=== PATIENT | male | born 1955 | race Caucasian/White ===

== ENCOUNTER → 2019-01-29 08:33 | Outpatient (CLI) | payer MEDICARE, MEDICAID, SELFPAY ==
[2019-01-29 10:42] LABS: Anion Gap 6 (5-15); BUN 16 mg/dL (7-18); BUN/Creat Ratio 16.6 RATIO (10-20); Chloride 108 mmol/L (98-107); Cholesterol 187 mg/dL (200); Creatinine, Serum 0.96 mg/dL (0.70-1.30); EST Glomerular Filtration Rate 83 mL/min (>60); Est Glom Filt Rate - Afr Amer 101 mL/min (>60); Glucose 95 mg/dL (74-106); High Density Lipoprotein 39 mg/dL; Potassium 4.1 mmol/L (3.5-5.1); Sodium Level 141 mmol/L (136-145); Triglycerides 105 mg/dL; Very Low Density Lipoprotein 21 mg/dL (5-40)
== END ==
PROVIDERS: Family Provider Family Medicine; PCP Family Medicine; Referring Provider Family Medicine; Visit Provider Family Medicine
DX: I10 Essential (primary) hypertension (principal)
CPT/HCPCS: 36415; 80048; 80061

== ENCOUNTER → 2019-02-23 09:48 | Outpatient (CLI) | payer MEDICARE, MEDICAID, SELFPAY ==
[2019-02-14 10:11] VITALS: BMI 37.0
[2019-02-23 12:33] LABS: Hemoglobin A1c 5.6 % (4.2-6.3)
[2019-02-23 12:35] LABS: Rheumatoid Factor < 10.0 IU/mL (<15); Thyroid Stim Hormone (TSH) 1.75 uIU/mL (0.358-3.74); Vitamin B12 378 pg/mL (211-911)
[2019-02-24 14:06] LABS: SJOGREN'S Anti-SS-A test < 0.2 AI (0.0-0.9); SJOGREN'S Anti-SS-B test < 0.2 AI (0.0-0.9)
[2019-02-25 17:21] LABS: ANTINUCLEAR ANTIBODIES DIRECT Negative (Negative)
[2019-02-26 20:07] LABS: Albumin 3.6 g/dL (2.9-4.4); Albumin, Ur 33.4 % (.); Alpha-1-Globulin, Ur 7.6 % (.); Alpha-1-Globulins 0.3 g/dL (0.0-0.4); Alpha-2-Globulins 0.7 g/dL (0.4-1.0); Alpha-2-Globulins, Ur 17.8 % (.); Beta Globulin, Ur 23.7 % (.); Cytoplasmic Ab (C-ANCA) <1:20 titer (Neg:<1:20); Gamma Globulin 1.1 g/dL (0.4-1.8); Gamma Globulin, Ur 17.4 % (.); Immunoglobulin A 81 mg/dL (61-437); Immunoglobulin G 847 mg/dL (700-1600); Immunoglobulin M 77 mg/dL (20-172); M-Spike, Ur % Not Observed % (Not Observed); PROEL- TOTAL PROTEIN 6.6 g/dL (6.0-8.5); Total Protein, Ur 13.8 mg/dL (Not Estab.)
[2019-02-27 17:47] LABS: Perinuclear Ab (P-ANCA) <1:20 titer (Neg:<1:20)
== END ==
PROVIDERS: Family Provider Family Medicine; PCP Family Medicine; Referring Provider Family Medicine; Visit Provider Psychiatry & Neurology Neurology
DX: G62.9 Polyneuropathy, unspecified (principal); I10 Essential (primary) hypertension; Z79.899 Other long term (current) drug therapy
CPT/HCPCS: 36415; 82607; 82784; 83036; 84165; 84166; 84443; 86038; 86235; 86256; 86334; 86335; 86431

== ENCOUNTER → 2019-02-28 | Outpatient (CLI) | payer MEDICARE, MEDICAID, SELFPAY ==
[2019-02-14 10:11] VITALS: BMI 37.0
--- NOTE | 2019-02-28 07:19 | MRI_ITS ---
STUDY: MRI BRAIN WITHOUT CONTRAST REASON FOR EXAM: Male, 63 years old. aneurysm follow up, no new complaints, no prior surgery, prev SDH,cva 2017. TECHNIQUE: Standardized multiplanar fat and water weighted pulse sequences were obtained. COMPARISON: CT dated February 28, 2019 and November 01, 2017 FINDINGS: Again noted is a right parietotemporal encephalomalacia and gliosis, the site of previous hemorrhage. There is mild cerebral atrophy with widening of the extra-axial spaces and ventricular dilatation. There are a limited number of small white matter hyperintensities, distributed throughout the deep white matter tracts of the cerebral hemispheres, consistent with mild chronic white matter ischemic changes. Normal bilateral basal ganglia. Normal thalami. There is no extra-axial fluid accumulation. Normal flow voids within the major intracranial circulation suggesting patency by spin echo criteria. Normal sella turcica, pituitary gland, infundibular stalk, optic chiasm and hypothalamus. Normal tectal plate and pineal gland. Normal midbrain, sandra and medulla. Normal cerebellum. MRI/Brain without Contrast IMPRESSION: No acute intracranial abnormality. Right parietotemporal encephalomalacia and gliosis Electronically Signed: Dario Munoz MD at 9:03 EDT Tel , Service support ,
--- NOTE | 2019-02-28 08:16 | CT_ITS ---
STUDY: CTA NECK WITH CONTRAST REASON FOR EXAM: Male, 63 years old. Peripheral vision loss. Left-sided weakness. History of CVA 2017. RADIATION DOSAGE (If Supplied By Facility): CTDIvol = ( 35.80 ) mGy, DLP = ( 1833.49 ) mGycm TECHNIQUE: CT angiography with multi-detector data acquisition was performed from the aortic arch to the skull base following intravenous administration of 100 IV Isovue 370. MIP images were reconstructed from the axial data set. Post-processing of the angiographic images was performed, with multiplanar reformation and 3D reconstruction. Individualized dose optimization techniques were used for this CT. COMPARISON: CT head February 28, 2019. FINDINGS: AORTIC ARCH: Normal visualized aortic arch. Normal origins of the brachiocephalic, left common carotid, and left subclavian arteries. RIGHT CAROTID ARTERIES: Normal right common carotid artery (CCA). Normal right common carotid bulb. Normal origin of the right internal carotid (ICA) artery without a hemodynamically significant stenosis. Normal visualized cervical portion of the right internal carotid artery. Normal origin of the right external carotid artery (ECA). LEFT CAROTID ARTERIES: Normal left common carotid artery (CCA). Normal left common carotid bulb. Normal origin of the left internal carotid (ICA) artery without a hemodynamically significant stenosis. Normal visualized cervical portion of the left internal carotid artery. Normal origin of the left external carotid artery (ECA). VERTEBRAL ARTERIES: Normal bilateral vertebral arteries. Multilevel degenerative changes of the mid and lower cervical spine. CT/CTA Neck W/WO Contrast IMPRESSION: Normal bilateral cervical carotid and vertebral arteries. Electronically Signed: Mendez Tee MD at 4:13 EDT , Service support ,
--- NOTE | 2019-02-28 08:16 | CT_ITS ---
STUDY: CT BRAIN WITH AND WITHOUT CONTRAST REASON FOR EXAM: Male, 63 years old. Peripheral vision loss. Left-sided weakness. Subdural hematoma. CVA 2017. RADIATION DOSAGE (If Supplied By Facility): CTDIvol = ( 35.80 ) mGy, DLP = ( 1833.49 ) mGycm TECHNIQUE: Transaxial CT imaging of the brain was performed pre and post contrast administration. The examination was performed with intravenous administration of 100 IV Isovue 370. Individualized dose optimization techniques were used for this CT. COMPARISON: None. FINDINGS: Normal soft tissue structures. Normal calvarium. Normal size ventricles and extra-axial spaces for the patient's age. Normal white matter tracts of the cerebral hemispheres. Normal basal ganglia and thalami. Normal brainstem. Normal cerebellum. Old right posterior parietal occipital region infarction. No abnormal areas of contrast enhancement There is no intracranial hemorrhage. There are no findings of an acute ischemic infarction. Normal visualized paranasal sinuses. CT/CTA Head W/WO Contrast IMPRESSION: No acute intracranial abnormality. Old right parieto-occipital infarction. Electronically Signed: Mendez Tee MD at 3:58 EDT , Service support ,
== END | disposition home or self-care (01) ==
PROVIDERS: Family Provider Family Medicine; PCP Family Medicine; Referring Provider Psychiatry & Neurology Neurology; Visit Provider Psychiatry & Neurology Neurology
DX: I72.9 Aneurysm of unspecified site (principal); I60.9 Nontraumatic subarachnoid hemorrhage, unspecified
CPT/HCPCS: 70496; 70498; 70551; Q9967

== ENCOUNTER → 2019-03-19 05:57 | Outpatient (CLI) | payer MEDICARE, MEDICAID, SELFPAY ==
[2019-02-14 10:11] VITALS: BMI 37.0
--- NOTE | 2019-03-19 06:00 | ECHOCS_ITS ---
Reason For Study: CHEST PAIN Procedure This was a 2D Doppler, Color Flow transthoracic echocardiogram. The study was technically difficult. Due to body habitus. Exam performed in department. Left Ventricle Normal LV size. Mild concentric left ventricular hypertrophy. Left ventricular systolic function is normal. The estimated ejection fraction is 65 %. No regional wall motion abnormalities noted. Right Ventricle Normal RV size. Normal systolic function. Atria Normal left atrium. Normal right atrium. Mitral Valve Normal mitral valve. Tricuspid Valve Normal tricuspid valve. Mild tricuspid valve insufficiency. Pulmonary artery systolic pressure is 26 mmHg. Aortic Valve The aortic valve is not well visualized. Pulmonic Valve Normal pulmonic valve. Great Vessels Normal aortic root. The pulmonary artery is normal size. Normal inferior vena cava. Pericardium/Pleural No pericardial effusion. Medication Diluted definity 4.0ml given slow IV push to enhance endocardial definition. Performed a rapid injection of agitated mix of 9 cc saline and 1cc air to assess for atrial septal defect. MMode/2D Measurements & Calculations LVIDd: 4.7 cm IVSd: 1.2 cm Ao root diam: 2.9 cm LVIDs: 3.3 cm LVPWd: 1.2 cm RVDd: 3.1 cm FS: 29.6 % LAV(MOD-bp): 54.6 ml LA A4 area: 18.5 cm2 LA dimension(2D): 4.3 cm LAV(MOD-bp) Indexed: 23.4 ml/m2 LAV(MOD-sp2): 50.9 ml LAV(MOD-sp4): 54.7 ml Time Measurements MV dec time: 0.21 sec Doppler Measurements & Calculations MV E max evgeny: 61.8 cm/sec Lat Peak E' Evgeny: 8.9 cm/sec Med Peak E' Evgeny: 5.9 cm/sec MV A max evgeny: 74.9 cm/sec E/E' lat: 6.9 E/E' med: 10.6 MV E/A: 0.83 Ao V2 max: 117.2 cm/sec LV V1 max: 105.3 cm/sec PA V2 max: 126.1 cm/sec Ao max P.5 mmHg LV V1 max P.4 mmHg TR max evgeny: 237.7 cm/sec TR max P.6 mmHg Interpretation Summary Normal LV size. Mild concentric left ventricular hypertrophy. Left ventricular systolic function is normal. The estimated ejection fraction is 65 %. Mild tricuspid valve insufficiency. Contrast injection was performed. Ordering Physician: Raphael Gallardo Referring Physician: Florentino Garza Performed By: Geneva Villalpando, CORINA, RVT
--- NOTE | 2019-03-19 09:16 | STRESSREP ---
Stress Test Report Pharmacologic myocardial perfusion stress test. 63-year-old man with a history of chest pain. Medications: Losartan. Resting EKG demonstrates normal sinus rhythm with a rate of 80 bpm. Resting blood pressures 152/84 mmHg. 0.4 mg of regadenoson was infused per usual protocol followed by rapid intravenous saline flush injection continuous EKG monitoring was performed. The maximum heart rate was 103 bpm which was 66% of maximum predicted heart rate the maximum workload was 1 metabolic equivalent. At rest there were no ST or T wave changes noted suggest abnormal flow reserve at peak infusion nonspecific ST-T wave changes were noted. No clinical angina was noted Myocardial perfusion protocol. 14.4 mCi of technetium 99m sestamibi was injected at rest. 0.4 mg of regadenoson was infused per usual protocol peak infusion 44.7 mCi of technetium 99m sestamibi was injected stress images were obtained stress and rest images were reconstructed and compared in the short axis vertical long horizontal long axis. Gated images were also obtained per Perfusion SPECT analysis: Review of the stress images demonstrate normal uptake of tracer noted in all areas of the myocardium. The resting images similarly demonstrate normal uptake of tracer noted in all areas of myocardium. No areas of reversibility are noted suggest ischemia no previous infarct is noted. Gated SPECT analysis: The gated ejection fraction is noted to be 68%. Conclusion: Normal pharmacologic myocardial perfusion stress test. Preserved ejection fraction.
== END ==
PROVIDERS: Family Provider Family Medicine; PCP Family Medicine; Referring Provider Internal Medicine Cardiovascular Disease; Visit Provider Internal Medicine Cardiovascular Disease
DX: I10 Essential (primary) hypertension (principal); R07.9 Chest pain, unspecified
CPT/HCPCS: 78452; 93017; 93306; A9500; Q9957; A4216; C8929; J2785

== ENCOUNTER → 2019-04-18 06:01 | Outpatient (CLI) | payer MEDICARE, MEDICAID, SELFPAY ==
[2019-02-14 10:11] VITALS: BMI 37.0
--- NOTE | 2019-04-18 14:04 | NEURO ---
NCS and/or EMG Patient Report Ordering Doctor: Antonio Rey DATE OF SERVICE: 04/18/19 Bryan Lopez is a 63-year-old male presents for electrodiagnostic testing of the lower limbs. He reports numbness and tingling in both feet and legs. He does have a history of CVA in 2017, and reports that his symptoms began after that. Electrodiagnostic findings: Peroneal motor nerve demonstrates normal distal latency bilaterally with borderline reduced amplitude on the right and reduced amplitude on the left, with normal conduction velocity. Normal tibial motor response bilaterally sensory responses are within normal limits. Needle EMG testing reveals no evidence of denervation in muscles tested. Motor action potentials were normal amplitude and duration. Electrodiagnostic Impression: This is an abnormal study in the lower limbs. 1. 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 Borderline findings for right common peroneal neuropathy are noted. There is no evidence of conduction block at the fibular head. 2. There is no electrodiagnostic evidence for peripheral polyneuropathy. 3. No electrodiagnostic evidence is noted for lumbosacral radiculopathy. If there are any further questions, please do not hesitate to contact me.
== END ==
PROVIDERS: Family Provider Family Medicine; PCP Family Medicine; Referring Provider Psychiatry & Neurology Neurology; Visit Provider Psychiatry & Neurology Neurology
DX: R26.89 Other abnormalities of gait and mobility (principal)
CPT/HCPCS: 95886; 95912

== ENCOUNTER → 2019-04-24 06:50 | Outpatient (CLI) | payer MEDICARE, MEDICAID, SELFPAY ==
[2019-02-14 10:11] VITALS: BMI 37.0
--- NOTE | 2019-04-24 09:50 | NEURO ---
NCS and/or EMG Patient Report Ordering Doctor: Antonio Rey DATE OF SERVICE: 04/24/19 This is a bilateral upper extremity nerve conduction study performed on this 63-year-old male with a history of left arm weakness and stroke. Bilateral upper extremity sensory and motor nerve conduction studies performed. The median motor and sensory distal latencies are mild to moderately prolonged with preservation of amplitudes and conduction velocities. The ulnar motor and sensory responses are preserved. The median F wave latencies are mild to moderately prolonged. The left ulnar F-wave latency is mildly prolonged however this is of unclear clinical significance. The patient had a nerve conduction study performed of the bilateral lower extremities recently which was consistent with common peroneal neuropathy but no evidence of polyneuropathy or radiculopathy. Impression: This is an abnormal elective physiologic study of the bilateral upper extremities consistent with carpal tunnel syndrome bilaterally.
== END ==
PROVIDERS: Family Provider Family Medicine; PCP Family Medicine; Referring Provider Psychiatry & Neurology Neurology; Visit Provider Psychiatry & Neurology Neurology
DX: R26.89 Other abnormalities of gait and mobility (principal)
CPT/HCPCS: 95911

== ENCOUNTER 2019-05-16 08:30 | Outpatient (RCR) | payer MEDICARE, MEDICAID, SELFPAY ==
[2019-02-14 10:11] VITALS: BMI 37.0
--- NOTE | 2019-03-09 08:46 | HP.PTEVAL ---
Patient's Visit Information LISA TIDWELL is a 63 year old M referred to Physical Therapy by Antonio Rey MD with a diagnosis of Balance issues. Date of Evaluation: 03/09/19 Physical Therapist: Timmy Dalton DPT, OCS, CSCS - Visit Plan Frequency: 2-3x /Week Duration: 4-6 Weeks Plan: neurocom blanace test then 2-3x/week for 4 weeks for: balance and general postural/LE strength to HEP. - Subjective Findings: Mom with him today. Had a hemmorhagic stroke in 2017 10/01/19. Saw [facility] a few weeks ago aas he has trouble with balance since the stroke. No dizzyness. Lost amost all peripheral vision from the stroke. Walking on flat ground is OK, yards adn uneven really throws him off. Has to take an extra minute when he gets up. No falls. No cane or walker. Has numbness in legs not sure why but has clots in legs and IVC filter that has been blocked. Not employed can't drive. Sleeps OK, bood vessels in legs and abdomen from circulation can cause discomfort much of time. Nothing to do about it at this time but have nerve conduction test is scheduled in March. Stress test scheduled for heart. MRI CT scan of head, EKG wiol be done. No regular exercises. Spends time not doign much, cleans a little bit. Walks alot each day 30-50 minutes + 2x/day. Tired upon completion. Walks on concrete. Steps to basement and can do them with rail. No previous balance treatment. Limps when tired. Basic ADLS no problem but does bump into things due to blindness - Objective Pt transfers I but difficult without UE. Walks with wide SHYAM and arms out carefully, short L step length, much more confident with cane. steps uses R Only and requires rail, poor confidence with L and functionally weaker. HS and gastroc mod tight. B LE swollen and edematous as ecpected with clots , filter adn inability to take blood thinner. Poor vision is apparent as he is walking. LE aROM WFL. Strength 4/5 B without asymmetries. sensation diminished R distal LE. reflexes 1/3 B patella and achilles. UE AROM WFL btu slow and hesitant, strength symmetrical. Poor coordination and motor control B LE especially in standing as confidence with vision problem and diminished sensation is poor. - Balance Scores Functional Gait Assessment Score: 16 % Disability: 46.6700 CATSIB Score (Max score 120 seconds): 93 - Goals Goal 1:: Pt to walk regularly with AD(B walking sticks for fitness and stick or cane for function) withotu increased symptoms adn show less hesitancy with balance. Goal Time Frame: 4-6 Weeks Goal 2:: FGA to diminish fall risk Goal Time Frame: 4-6 Weeks Goal 3:: Pt feel balance 75% better. Goal Time Frame: 4-6 Weeks Goal 4:: I approp HEP for strength and balance to minimize problems in future. Goal Time Frame: 4-6 Weeks - Rehabilitation Potential Physical Therapy Diagnosis: Balance issues related to multiple medical problems. Rehabilitation Potential: Fair - Anticipated Interventions Patient/Client Instruction: Educate patient on: Condition, Plan of Care, Risk Factors For the Purpose of:: To improve gait and locomotor functions, To improve balance Therapeutic Exercise to Include: Strength training, Balance training, Postural training, Flexibilty training For the Purpose of:: To increase tolerance to activity/condition/position, To improve gait and locomotor functions, To improve safety with gait Thank you for the opportunity to evaluate your patient. For Medicare and Medicare HMO plans, please review the plan of care and approve it. It will need to be FAXED BACK to us at [phone] for Medicare purposes. For Medicare only, by signing this I certify the plan of care. Please let me know if there are questions or concerns regarding this plan of care. Physician Signature: Date:
--- NOTE | 2019-03-20 10:32 | HP.PTCOM ---
PT Communication Note 03/20/[address] Antonio Rey MD , Thank you for the referral of Bryan to [facility] for balance testing. I have enclosed a copy of the results for your review. In summation, he scored lower on the visual and vestibular portion of the SOT. He scored slow on the Motor Control Test. He scored slow on the Adaptation Test but adapted fairly well. He scored low on the excursiona nd velocity forward weight shifts on the Limits of Stability Test. With these results in mind, I plan to see him 3x/week for 4 weeks to wrok on LE strength, postural strength adn balance per these results and progress to an HEP. If there are questions regarding his PT, please feel free to call me. Thank you once again. Sincerely, Timmy Dalton DPT, OCS, CSCS Contact Information
--- NOTE | 2019-03-20 10:36 | HP.PTCOM_ITS ---
PT Communication Note 03/20/[address] Antonio Rey MD , Thank you for the referral of Bryan to [facility] for balance testing. I have enclosed a copy of the results for your review. In summation, he scored lower on the visual and vestibular portion of the SOT. He scored slow on the Motor Control Test. He scored slow on the Adaptation Test but adapted fairly well. He scored low on the excursiona nd velocity forward weight shifts on the Limits of Stability Test. With these results in mind, I plan to see him 3x/week for 4 weeks to wrok on LE strength, postural strength adn balance per these results and progress to an HEP. If there are questions regarding his PT, please feel free to call me. Thank you once again. Sincerely, Timmy Dalton DPT, OCS, CSCS Contact Information
--- NOTE | 2019-04-20 10:55 | HP.PTREVAL_ITS ---
Antonio Rey MD, It has been my pleasure to treat LISA TIDWELL over the last 13 visits for Balance issues. Please see the progress note below for an update on the physical therapy plan of care! Subjective: Feeling stronger. Balancemay have some improvement. Walking and moving at home can feel unsteady but no LOB or falls. Tired after therapy. Head movement balance is better. Go a cane but not using it. Mom says walking better outside. HEP stadning at counter, SLS, squats. VOR sitting. using steps to basement as ex. Objective/Function: FGA is +8 which is excellent, plenty of strength to push self up steps without UE help. 4+/5 LE strength. OVERALL MUCH BETTER, CAN BENEFIT FROM COTNINUED PT TO WORK ON BALANCE WITH HEAD MOVEMENTS WITH FAIR PROGNOSIS. Plan Plan: 2X/WEEK X 4 WEEKS FOR ... 1. Teach for HEP with list deeper squats, lunges, RDL, and TB posture ex. 2. Balance with head movements VOR, and bending to look at floor and quick turns. Progress to HEP as safety allows. Goals Goal 1:: Pt to walk regularly with AD(B walking sticks for fitness and stick or cane for function) withotu increased symptoms adn show less hesitancy with balance. Goal Time Frame: 4-6 Weeks Goal Progress: Goal Met Goal 2:: FGA to diminish fall risk Goal Time Frame: 4-6 Weeks Goal Progress: Goal Met Goal 3:: Pt feel balance 75% better. Goal Time Frame: 4-6 Weeks Goal Progress: 25% Goal 4:: I approp HEP for strength and balance to minimize problems in future. Goal Time Frame: 4-6 Weeks Goal Progress: Progressing. Goal 5:: FGA to reduce risk of falling. Goal Time Frame: 4-6 Weeks Goal Progress: NEW GOAL Anticipated Interventions Patient/Client Instruction: Educate patient on: Condition, Plan of Care, Risk Factors For the Purpose of:: To improve gait and locomotor functions, To improve balance Therapeutic Exercise to Include: Strength training, Balance training, Postural training, Flexibilty training For the Purpose of:: To increase tolerance to activity/condition/position, To improve gait and locomotor functions, To improve safety with gait Please do not hesitate to contact me at [phone] by phone or Fax: if you have questions or concerns regarding this new plan of care! Sincerely, Timmy Dalton, DPT, OCS, CSCS
--- NOTE | 2019-05-16 08:50 | HP.PTDCSUM ---
HP - PT D/C Summary It has been my pleasure to treat LISA TIDWELL under orders from Antonio Rey MD, for the diagnosis of Balance issues for a total of 21 visit(s). Discharge Date: 05/16/19 Please see the following information for a summary of their discharge status. - Subjective Subjective: Strength balance adn confidence. Doing exercises at home regularly. Safer and more confident shopping. Tolerates changes in grade of donita without problem now. Will walk more confidently on sidewalks now. Confident enough to fly to [employer] in a few weeks. - Overall Improvement % Improvement: 75 - Objective Objective/Function: FGA is and +14 overall which is amazing improvement. His confience has improved tremendously. Transfers and steps without need for UE today. - Goals Goal 1:: Pt to walk regularly with AD(B walking sticks for fitness and stick or cane for function) withotu increased symptoms adn show less hesitancy with balance. Goal Progress: not needed now. Goal 2:: FGA to diminish fall risk Goal Progress: Goal Met Goal 3:: Pt feel balance 75% better. Goal Progress: Goal Met Goal 4:: I approp HEP for strength and balance to minimize problems in future. Goal Progress: Goal Met Goal 5:: FGA to reduce risk of falling. Goal Progress: Goal Met - Plan Plan: D/C - D/C Information Discharge Comments: Amazing improvement in balance and confidence adn will continue via HEP. If there are questions or concerns regarding this patient's physical therapy, please feel free to call me at [phone]. Thank you for the referral of this patient. Sincerely, Timmy Dalton, DPT, OCS, CSCS
== END 2019-05-16 19:00 | disposition home or self-care (01) ==
LOC: PT 08:30
PROVIDERS: Family Provider Family Medicine; PCP Family Medicine; Referring Provider Psychiatry & Neurology Neurology; Visit Provider Psychiatry & Neurology Neurology
DX: R26.89 Other abnormalities of gait and mobility (principal)
CPT/HCPCS: 97110; 97116; 97162; 97530; 97750

== ENCOUNTER → 2019-08-20 09:02 | Outpatient (CLI) | payer MEDICARE, MEDICAID, SELFPAY ==
[2019-08-16 08:24] VITALS: BMI 35.8
[2019-08-20 10:33] LABS: Anion Gap 7 (5-15); BUN 16 mg/dL (7-18); BUN/Creat Ratio 15.8 RATIO (10-20); Calcium,Total 9.5 mg/dL (8.5-10.1); Chloride 107 mmol/L (98-107); Cholesterol 177 mg/dL (200); Creatinine, Serum 1.01 mg/dL (0.70-1.30); EST Glomerular Filtration Rate 79 mL/min (>60); Est Glom Filt Rate - Afr Amer 95 mL/min (>60); Glucose 95 mg/dL (74-106); High Density Lipoprotein 37 mg/dL; Potassium 4.8 mmol/L (3.5-5.1); Sodium Level 143 mmol/L (136-145); Triglycerides 154 mg/dL; Very Low Density Lipoprotein 31 mg/dL (5-40)
== END ==
PROVIDERS: Family Provider Family Medicine; PCP Family Medicine; Referring Provider Family Medicine; Visit Provider Family Medicine
DX: I10 Essential (primary) hypertension (principal)
CPT/HCPCS: 36415; 80048; 80061

== ENCOUNTER → 2020-02-22 16:51 | Outpatient (CLI) | payer MEDICARE, MEDICAID, SELFPAY ==
[2019-08-16 08:24] VITALS: BMI 35.8
--- NOTE | 2020-02-22 16:56 | MRI_ITS ---
STUDY: MRI BRAIN WITHOUT CONTRAST REASON FOR EXAM: Male, 64 years old. New onset of seizures, 2017 HX of ruptured Aneurysm, SAH TECHNIQUE: Standardized multiplanar fat and water weighted pulse sequences were obtained. COMPARISON: MRI of the brain February 28, 2019 FINDINGS: Normal size of the ventricles and extra-axial spaces for the patient''s age. Mild periventricular white matter ischemic changes without evidence for mass effect or restricted diffusion.. There is gliosis and encephalomalacia in the right temporal parietal region with porencephalic dilatation of the occipital horn of right lateral ventricle in association with hemosiderin deposition consistent with old hemorrhagic infarct. Normal bilateral basal ganglia. Normal thalami. There is no extra-axial fluid accumulation. Normal flow voids within the major intracranial circulation suggesting patency by spin echo criteria. Normal sella turcica, pituitary gland, infundibular stalk, optic chiasm and hypothalamus. Normal tectal plate and pineal gland. Normal midbrain, sandra and medulla. Normal cerebellum. Normal basal cisterns. Normal bilateral temporal bones. Normal bilateral internal auditory canals. Postsurgical changes of the orbits.. Minor mucosal thickening of the ethmoid air cells Normal calvarium and skull base. Normal visualized soft tissue structures. Normal visualized upper cervical spine. No significant change since prior exam MRI/Brain without Contrast IMPRESSION: Findings which may be consistent with old right hemorrhagic temporal parietal infarct. Mild periventricular white matter ischemic change without evidence for acute infarct Electronically Signed: Elliott Farias MD at 18:20 EDT , Service support ,
== END ==
PROVIDERS: PCP Family Medicine; Visit Provider Nurse Practitioner Family
DX: R55 Syncope and collapse (principal); Z86.79 Personal history of other diseases of the circulatory system
CPT/HCPCS: 70551

== ENCOUNTER → 2020-03-11 20:29 | Outpatient (CLI) | payer MEDICARE, MEDICAID, SELFPAY ==
[2019-08-16 08:24] VITALS: BMI 35.8
== END ==
PROVIDERS: PCP Family Medicine; Visit Provider Nurse Practitioner Family
DX: G47.33 Obstructive sleep apnea (adult) (pediatric) (principal)
CPT/HCPCS: 95810

== ENCOUNTER → 2020-03-28 11:48 | Outpatient (CLI) | payer MEDICARE, MEDICAID, SELFPAY ==
[2020-03-27 10:16] VITALS: BMI 36.1
[2020-03-28 15:43] LABS: Anion Gap 3 (5-15); BUN 12 mg/dL (7-18); BUN/Creat Ratio 13.7 RATIO (10-20); Calcium,Total 9.1 mg/dL (8.5-10.1); Chloride 105 mmol/L (98-107); Cholesterol 150 mg/dL (200); Creatinine, Serum 0.87 mg/dL (0.70-1.30); EST Glomerular Filtration Rate 93 mL/min (>60); Est Glom Filt Rate - Afr Amer 112 mL/min (>60); Glucose 102 mg/dL (74-106); High Density Lipoprotein 28 mg/dL; Sodium Level 139 mmol/L (136-145); Triglycerides 227 mg/dL; Very Low Density Lipoprotein 45 mg/dL (5-40)
== END ==
PROVIDERS: PCP Family Medicine; Visit Provider Family Medicine
DX: I10 Essential (primary) hypertension (principal)
CPT/HCPCS: 36415; 80048; 80061

== ENCOUNTER → 2020-04-02 | Outpatient (CLI) | payer MEDICARE, MEDICAID, SELFPAY ==
[2020-03-27 10:16] VITALS: BMI 36.1
== END | disposition home or self-care (01) ==
LOC: LABSPEC 14:20
PROVIDERS: PCP Family Medicine; Referring Provider Family Medicine; Visit Provider Family Medicine
DX: D49.2 Neoplasm of unspecified behavior of bone, soft tissue, and skin (principal)

== ENCOUNTER → 2020-04-03 | Outpatient (CLI) | payer MEDICARE, MEDICAID, SELFPAY ==
[2020-03-27 10:16] VITALS: BMI 36.1
--- NOTE | 2020-04-02 | LES_PTH ---
PATIENT: LISA TIDWELL LOC: [facility] U#:[id number] AGE/SX: 64/M ROOM: RE04/03/[address]: Dr. Florentino Garza MD : [id number] BED: DIS: 04/03/2020 SPEC #: [id number] RECD: 04/02/20 12:17 STATUS: ANGELINA TILA #: [id number] TOBI: 04/02/20 00:[address]: Florentino Garza DEPT: SURGICAL PATHOLOGY RECD BY: Alverto Suarez Tissues: Skin of arm Procedures: Surgery Specimen Level IV HEADER OPERATION: Punch biopsy PRE-OP DIAGNOSIS: Suspicious skin lesion right forearm TISSUE SUBMITTED: Right forearm 8 mm MICROSCOPIC DIAGNOSIS Skin lesion of right forearm, punch biopsy: Verrucoid keratosis. Mild solar elastosis. See comment. AM:ozzie 04/03/20 COMMENT The lesion appears to have been completely excised in the planes examined. MICROSCOPIC DESCRIPTION Slides are reviewed. GROSS DESCRIPTION Received is one container labeled with the patient's name and not further designated. The specimen consists of a punch biopsy of nicole-white skin measuring 0.8 cm in diameter and 0.2 cm in length. The specimen is inked and submitted entirely in one cassette. It will be bisected at the time of embedding. / SJ:rg 04/02/20 TC:5 [facility] [place]: [id number]
== END | disposition home or self-care (01) ==
PROVIDERS: PCP Family Medicine; Visit Provider Family Medicine
DX: L57.8 Other skin changes due to chronic exposure to nonionizing radiation (principal)
CPT/HCPCS: 88305

== ENCOUNTER → 2020-04-14 20:00 | Outpatient (CLI) | payer MEDICARE, MEDICAID, SELFPAY ==
[2020-03-27 10:16] VITALS: BMI 36.1
== END ==
PROVIDERS: PCP Family Medicine; Referring Provider Nurse Practitioner Family; Visit Provider Nurse Practitioner Family
DX: G47.33 Obstructive sleep apnea (adult) (pediatric) (principal)
CPT/HCPCS: 95811

== ENCOUNTER 2020-05-10 19:03 | Emergency (ER) | payer MEDICARE, MEDICAID, SELFPAY ==
[2020-03-27 10:16] VITALS: BMI 36.1
[2020-05-10 19:05] VITALS: BP 128/72; PULSE 64; RESP 12; TEMP 36.5; O2SAT 99; BMI 36.0
--- NOTE | 2020-05-10 19:23 | EKG12_ITS ---
Test Reason : SYNCOPE Blood Pressure : / mmHG Vent. Rate : 069 BPM Atrial Rate : 069 BPM P-R Int : 178 ms QRS Dur : 090 ms QT Int : 392 ms P-R-T Axes : 041 -40 007 degrees QTc Int : 420 ms Normal sinus rhythm Left axis deviation Abnormal ECG Confirmed by WILLIAMS MARVIN, SEMAJ ([id number]), digital forensic examiner TALAT CARNES ([id number]) on 05/12/2020 1:12:09 PM Referred By: ARMANDO Confirmed By:SEMAJ KRAMER MD
--- NOTE | 2020-05-10 19:23 | CT_ITS ---
STUDY: CT BRAIN WITHOUT CONTRAST REASON FOR EXAM: Male, 64 years old. SYNCOPE, TRAUMA, LAC TO FOREHEAD. H/O HEMORRHAGIC CVA RADIATION DOSAGE (If Supplied By Facility): CTDIvol = ( 44.99 ) mGy, DLP = ( 779.21 ) mGycm TECHNIQUE: Transaxial CT imaging of the brain was performed without administration of intravenous contrast material. Individualized dose optimization techniques were used for this CT. COMPARISON: No relevant priors. FINDINGS: Normal soft tissue structures. Normal calvarium. Normal size ventricles and extra-axial spaces for the patient''s age. Mild periventricular white matter ischemic changes. Old infarct in the right parieto-occipital region.. Normal basal ganglia and thalami. Normal brainstem. Normal cerebellum. There is no intracranial hemorrhage. There are no findings of an acute ischemic infarction. Postsurgical changes of the orbits. Normal visualized paranasal sinuses. CT/Brain/Head without Contrast IMPRESSION: Old right parieto-occipital infarct. No evidence for acute intracranial bleed Electronically Signed: Elliott Farias MD at 20:39 EDT , Service support ,
--- NOTE | 2020-05-10 19:24 | RAD_ITS ---
STUDY: X-RAY CHEST REASON FOR EXAM: Male, 64 years old. Syncope, shakiness. TECHNIQUE: PA and lateral COMPARISON: None. FINDINGS: The lungs are clear and expanded. There is no demonstrated pleural abnormality. Normal size heart. Normal mediastinum and frank. Normal visualized pulmonary arteries. Normal visualized aortic arch and descending thoracic aorta. Dorsal spine demonstrates mild degenerative change. Normal visualized ribs, clavicles, and shoulders. There is no demonstrated abnormality of the visualized soft tissue structures of the upper abdomen. RAD/Chest PA and Lateral IMPRESSION: No acute cardiopulmonary pathology. Electronically Signed: Elliott Farias MD at 20:09 EDT , Service support ,
--- NOTE | 2020-05-10 19:30 | ED.DCSUM_ITS ---
History of Present Illness Chief Complaint: Syncope Informant: Patient Narrative: Patient is a 64-year-old male who presents to the emergency department after a syncopal episode. He states that it initially started as lower quadrant abdominal cramping. He went to have a bowel movement. This did relieve his symptoms. He went to stand up and he got the abdominal discomfort again. At that time he had a syncopal episode. He states he was not straining to have a bowel movement at that time. He fell and hit his head. He has a small laceration to his forehead. He denies having any chest pain, shortness of breath or heart palpitations during any of this. He has had syncopal episodes before in the past. He states he does have a history of strokes for which she has some residual problems from. He has no peripheral vision. He gets vertigo at times. 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 He has an IVC filter in place but is not on any anticoagulation. He denies any recent illnesses including any cough, cold, congestion. No fevers or chills. Denies any nausea or vomiting. His abdominal pain has completely resolved at this time. He does not have any complaints now. He has had a recent medication change with a decrease in his dose of hydrochlorothiazide. Past Medical History - Allergies and Home Meds Allergies/Adverse Reactions: Allergies No Known Allergies Allergy (Verified 03/27/20 10:17) Primary Care Physician: Florentino Garza MD [Primary Care Provider] - Prior records reviewed: Yes Past Medical History: - - DVT, stroke, hypertension Surgical History: - - IVC filter placed Lives: Spouse/ Significant Other Smoking Status: Never smoker Review of Systems All systems negative except as indicated General: Denies: Chills, Fever, Sweats Eyes: Denies: Visual changes - bilaterally, Diplopia ENT: Denies: Rhinorrhea, Sore throat Cardiovascular: Denies: Chest pain, Palpitations Respiratory: Denies: Dyspnea, Cough, Dyspnea on exertion Gastrointestinal: Reports: Abdominal pain - Resolved. Denies: Nausea, Vomiting, Diarrhea, Melena, Hematochezia Genitourinary: Denies: Dysuria, Hematuria, Frequency Musculoskeletal: Reports: Neck pain - Right paraspinal musculature into t rapezius. Denies: Back pain, Extremity Pain Skin: Denies: Rash, Wounds Neurological: Denies: Headache, Weakness, Numbness Physical Exam Vital Signs/Narrative: Vital Signs Temp Pulse Resp BP Pulse Ox 05/10/20 19:05 97.7 F L 64 12 128/72 H 99 Inital Vital Signs reviewed: Yes General: Well nourished, Well developed, No Acute Distress Head: Normocephalic, - - 3 cm laceration over left eyebrow. No active bleeding. Eyes: Perrl, EOMI ENT: Moist mucous membranes, No rhinorrhea Neck: Supple, - - No midline spine tenderness to palpation. He does have some tenderness to right paraspinal musculature and trapezius. Cardiovascular: Regular rate, Regular rhythm, No murmurs, - - 2+ radial pulses bilaterally Respiratory: No distress, CTA bilaterally, Chest nontender Abdomen: Soft, Nontender, Nondistended, Normal bowel sounds Back: Nontender, Normal Inspection Extremities: Nontender, No edema Skin: Normal color, No rash Neurological: Alert, Oriented x3, Cranial nerves II-XII grossly intact, Normal Strength, Normal Sensation Psychological: Normal affect, Normal Mood Diagnostic/Tx/Re-eval - EKG Initial EKG Interpretation: - - Rate of 69 bpm in sinus rhythm. Normal intervals. Normal axis. No ST elevations or depressions appreciated. No T wave abnormalities. No prior EKG for comparison. - Medical Decision Making Patient presents the emerge department after a syncopal episode. Was having some lower abdominal pain/cramping at that time. We will do a cardiac work-up as well as CT scan of his head. Patient's lab work-up did not reveal any significant acute abnormality. No significant anemia. No significant electrolyte abnormality. Troponin within normal limits. Chest x-ray did not show any acute cardiopulmonary abnormality. CT scan of his head showed the previous stroke but no new intracranial abnormality. We did obtain orthostatic vitals because he has been having issues with dropping his blood pressure. He has been having medication adjustments. He possibly could have had a vasovagal episode due to the abdominal discomfort or he could have had a orthostatic episode moving from sitting to standing off the toilet. Either way I did feel patient would be better served in the hospital to get an echocardiogram. He states he did have a cardiac work-up a few few weeks ago and does not want to stay in the hospital. I did discuss risks associated with going home including having repeat episodes and having head injuries from falling. Patient still wants to be discharged at this time. He states he is feeling much better and has not had any episodes throughout ED stay. He has been able to ambulate to the restroom and back without any issues. Patient's facial laceration was not . No active bleeding. There was a small area where the skin was removed. Nothing to suture back into place. This was dressed with antibiotic ointment and a Band-Aid. At this time will discharge home in stable condition. He needs to have very close follow-up with his PCP and is to call him Tuesday morning. If he has any repeat symptoms he is to return to the emergency department immediately. He understands and is agreeable with this plan. ED Disposition - Plan for ED Patient: Disposition: Home or Assisted Living Diagnosis: Syncope and collapse, Facial laceration Instructions: ED Fainting Uncertain Cause, ED Laceration Small or Superficial Not Stitched Referrals: Florentino Garza MD [Primary Care Provider] - 1 Day
[2020-05-10 19:34] LABS: Absolute Lymphocyte Count 1.23 X10^3/uL (0.83-4.51); Absolute Neutrophil Count 2.7 X10^3/uL (2.0-7.7); Basophil# 0.02 X10^3/uL; Basophil% 0.4 % (0-1); Eosinophil# 0.17 X10^3/uL; Eosinophils% 3.8 % (0-5); Hematocrit 46.7 % (40-54); Hemoglobin 15.4 g/dL (13.0-16.5); Lymphocyte # 1.23 X10^3/ul (4.0); Lymphocyte % 27.4 % (19-41); Mean Corpuscular Hgb 30.4 pg (27.0-32.0); Mean Corpuscular Volume 92.1 fL (80-94); Mean Platelet Vol. 10.6 fl (6.2-12.0); Monocyte# 0.38 X10^3/uL; Monocyte% 8.5 % (0-10); NRBC Flagged by Analyzer 0 % (0-5); Neutrophil # 2.68 X10^3/uL (2.7-7.7); Neutrophil % 59.7 % (47-70); Platelet Count 182 K/mm3 (150-450); RBC Distribution Width CV 12.7 % (11.6-14.6); RBC Distribution Width SD 42.3 fl (35.1-43.9); Red Blood Count 5.07 M/mm3 (4.6-6.2); White Blood Count 4.5 K/mm3 (4.4-11.0)
[2020-05-10 19:53] LABS: ALB/GLOB Ratio 1.2 RATIO (0.9-2.4); AST(SGOT) 27 U/L (15-37); Alanine Aminotransfer ALT/SGPT 38 U/L (16-61); Albumin, Serum 3.9 g/dL (3.2-5.0); Alkaline Phosphatase 97 U/L (45-117); Anion Gap 4 (5-15); BUN 13 mg/dL (7-18); BUN/Creat Ratio 10.7 RATIO (10-20); Calcium,Total 8.9 mg/dL (8.5-10.1); Chloride 108 mmol/L (98-107); Creatinine, Serum 1.21 mg/dL (0.70-1.30); EST Glomerular Filtration Rate 64 mL/min (>60); Est Glom Filt Rate - Afr Amer 77 mL/min (>60); Estimated Creatinine Clearance 63.96 ml/min; Globulin 3.2 g/dL (2.2-4.2); Glucose 118 mg/dL (74-106); Magnesium 2.1 mg/dL (1.6-2.6); Protein, Total 7.1 g/dL (6.4-8.2); Sodium Level 141 mmol/L (136-145)
[2020-05-10 21:03] VITALS: BP 147/82; PULSE 86; RESP 18; O2SAT 95
[2020-05-10 21:26] VITALS: BP 139/65; BP 152/81; BP 157/66; PULSE 91; PULSE 92; PULSE 98
[2020-05-10 21:59] VITALS: BP 152/81; PULSE 94; RESP 20; O2SAT 95
== END 2020-05-10 22:06 | disposition home or self-care (01) ==
PROVIDERS: Emergency Provider Emergency Medicine; PCP Family Medicine
DX: R55 Syncope and collapse (principal); S01.112A Laceration without foreign body of left eyelid and periocular area, initial encounter; W18.39XA Other fall on same level, initial encounter; Y93.89 Activity, other specified; Y92.9 Unspecified place or not applicable; I10 Essential (primary) hypertension; Z86.718 Personal history of other venous thrombosis and embolism; Z86.73 Personal history of transient ischemic attack (TIA), and cerebral infarction without residual deficits
CPT/HCPCS: 70450; 71046; 80053; 83735; 84484; 85025; 93005; 99285; A4216

== ENCOUNTER → 2020-09-18 08:56 | Outpatient (CLI) | payer MEDICARE, MEDICAID, SELFPAY ==
[2020-09-18 10:14] LABS: BUN 14 mg/dL (7-18); Creatinine, Serum 0.91 mg/dL (0.70-1.30); EST Glomerular Filtration Rate 88 mL/min (>60); Glucose 115 mg/dL (74-106)
[2020-09-18 10:15] LABS: Anion Gap 2 (5-15); BUN/Creat Ratio 15.4 RATIO (10-20); Calcium,Total 9.1 mg/dL (8.5-10.1); Chloride 112 mmol/L (98-107); Cholesterol 144 mg/dL (200); Est Glom Filt Rate - Afr Amer 107 mL/min (>60); High Density Lipoprotein 38 mg/dL; Potassium 4.1 mmol/L (3.5-5.1); Sodium Level 141 mmol/L (136-145); Triglycerides 93 mg/dL; Very Low Density Lipoprotein 19 mg/dL (5-40)
== END ==
PROVIDERS: PCP Family Medicine; Visit Provider Family Medicine
DX: I10 Essential (primary) hypertension (principal)
CPT/HCPCS: 36415; 80048; 80061

== ENCOUNTER 2021-03-01 19:33 | Emergency (ER) | payer MEDICARE, MEDICAID, SELFPAY ==
[2021-03-01 19:34] VITALS: BP 171/97; PULSE 78; RESP 18; TEMP 37; O2SAT 95; BMI 35.9
--- NOTE | 2021-03-01 19:51 | CT_ITS ---
EXAMINATION : Head CT w/out contrast HISTORY : Stroke COMPARISON : 05/10/2020. TECHNIQUE : Multiple contiguous axial images were obtained from the skull base to the vertex without intravenous contrast. A radiation dose optimization technique was used for this scan. FINDINGS : There is no evidence for acute intracranial hemorrhage, mass effect, or midline shift. There is no extra-axial fluid collection. There are periventricular white matter changes consistent with chronic microvascular ischemic disease. There is normal jaquez-white differentiation, without CT evidence of acute ischemia or infarct. Encephalomalacia in the right parietal and occipital lobes. The skull base and calvarium are unremarkable. The orbits are unremarkable. The paranasal sinuses are clear. Pneumatization of the petrous apices. The mastoid air cells are well-aerated. The soft tissues are unremarkable. CT/Brain/Head without Contrast IMPRESSION: No acute intracranial abnormality. Old right parieto-occipital infarct. Chronic ischemic changes of the brain. Electronically Signed: Alen Melgar MD at 21:05 EDT Tel , Service support ,
--- NOTE | 2021-03-01 19:52 | EKG12_ITS ---
Test Reason : DIZZY Blood Pressure : / mmHG Vent. Rate : 072 BPM Atrial Rate : 072 BPM P-R Int : 176 ms QRS Dur : 094 ms QT Int : 398 ms P-R-T Axes : 043 -43 011 degrees QTc Int : 435 ms Normal sinus rhythm Left axis deviation Poor R wave progression Nonspecific T wave abnormality Abnormal ECG Confirmed by BEN MARVIN, GILBERTO ([id number]), newspaper editor managing TALAT CARNES ([id number]) on 03/04/2021 8:51:24 AM Referred By: YONATAN Confirmed By:GILBERTO CONTRERAS MD
[2021-03-01] MEDS: diazePAM 5 MG Tablet 2.5 MG PO (20:04)
[2021-03-01 20:05] LABS: Absolute Lymphocyte Count 1.39 X10^3/uL (0.83-4.51); Absolute Neutrophil Count 2.4 X10^3/uL (2.0-7.7); Basophil# 0.03 X10^3/uL; Basophil% 0.7 % (0-1); Eosinophil# 0.16 X10^3/uL; Eosinophils% 3.7 % (0-5); Hematocrit 46.4 % (40-54); Hemoglobin 15.1 g/dL (13.0-16.5); Lymphocyte # 1.39 X10^3/ul (0.83-4.51); Lymphocyte % 31.7 % (19-41); Mean Corp Hgb Conc 32.5 g/dL (32-36); Mean Corpuscular Hgb 29.4 pg (27.0-32.0); Mean Corpuscular Volume 90.4 fL (80-94); Mean Platelet Vol. 10.4 fl (6.2-12.0); Monocyte# 0.39 X10^3/uL; Monocyte% 8.9 % (0-10); NRBC Flagged by Analyzer 0 % (0-5); Neutrophil % 54.8 % (47-70); Platelet Count 169 K/mm3 (150-450); RBC Distribution Width CV 12.7 % (11.6-14.6); RBC Distribution Width SD 41.7 fl (35.1-43.9); Red Blood Count 5.13 M/mm3 (4.6-6.2); White Blood Count 4.4 K/mm3 (4.4-11.0)
[2021-03-01 20:14] LABS: International Normalized Ratio 1.2; Prothrombin Time (Protime)PT. 14.2 SECONDS (11.7-14.9)
[2021-03-01 20:15] LABS: Partial Thromboplast Time 28.9 Seconds (24.1-36.2)
[2021-03-01 20:24] LABS: ALB/GLOB Ratio 1.2 RATIO (0.9-2.4); AST(SGOT) 17 U/L (15-37); Alanine Aminotransfer ALT/SGPT 33 U/L (16-61); Albumin, Serum 3.9 g/dL (3.2-5.0); Alkaline Phosphatase 106 U/L (45-117); Anion Gap 6 (5-15); BUN 11 mg/dL (7-18); BUN/Creat Ratio 10.5 RATIO (10-20); Calcium,Total 9.4 mg/dL (8.5-10.1); Chloride 106 mmol/L (98-107); Creatinine, Serum 1.05 mg/dL (0.70-1.30); EST Glomerular Filtration Rate 75 mL/min (>60); Est Glom Filt Rate - Afr Amer 91 mL/min (>60); Estimated Creatinine Clearance 70.49 ml/min; Globulin 3.3 g/dL (2.2-4.2); Glucose 165 mg/dL (74-106); Potassium 3.5 mmol/L (3.5-5.1); Protein, Total 7.2 g/dL (6.4-8.2); Sodium Level 141 mmol/L (136-145)
[2021-03-01 21:39] VITALS: BP 152/76; PULSE 63; RESP 17; O2SAT 95
--- NOTE | 2021-03-01 22:05 | EX.ED.DYSGE1 ---
HPI History of Present Illness Chief Complaint: Dizziness Informant: patient Onset/Context/Timing Onset: Yesterday Timing: Intermittent Quality: Spinning and off-balance Location: Head Current Severity: 10 Worsened by: Certain positions Associated Symptoms Associated Symptoms: Tinnitus, cloudy vision Narrative Narrative: Patient presents with dizziness that began yesterday. Patient states he feels like it is a spinning sensation. Patient states he took a meclizine at home with no improvement. Patient states he feels off balance. Patient admits to some tinnitus and cloudy vision. Patient states he has had these symptoms before with dizziness. Patient denies any hearing loss. Patient admits to some mild pain in his chest. Patient admits to nausea but denies any vomiting. 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) Obesity Obstructive sleep apnea Pedal edema Stroke/cerebrovascular accident Home Medications gabapentin 300 mg capsule 300 mg PO TID cap 03/27/20 [History Last Taken Unknown] losartan-hydrochlorothiazide 1 tab PO DAILY 03/01/21 [History Last Taken Unknown] Allergy/AdvReac Type Severity Reaction Status Date / Time No Known Allergies Allergy Verified 03/01/21 19:36 Surgical History Presence of inferior vena cava filter Social History Smoking Status: Never smoker alcohol intake: never ROS ROS ED Constitutional Constitutional ED: Denies chills or fever(s) Eyes Eyes: Reports blurry vision; Denies diplopia ENT ENT ED: Denies rhinorrhea or sore throat Cardiovascular Cardiovascular: Reports chest pain; Denies palpitations Respiratory/Chest Respiratory/Chest: Denies cough or dyspnea Gastrointestinal Gastrointestinal: Reports nausea; Denies vomiting Genitourinary Genitourinary ED: Denies dysuria or hematuria Musculoskeletal Musculoskeletal: Denies back pain or neck pain Integumentary Denies abscess or rash Neurologic Neurologic: Reports weakness; Denies paresthesias Allergic/Immunologic Allergic/Immunologic ED: Denies mouth swelling or urticaria EXAM Physical Exam Const Vital Signs: 03/01/21 19:34 03/01/21 19:40 03/01/21 21:39 Temperature 98.6 F Temperature Source Temporal Pulse Rate 78 63 Respiratory Rate 18 17 Respiratory Effort Normal Respiratory Pattern Normal Blood Pressure 171/97 H 152/76 H Blood Pressure Mean 121 101 Pulse Ox 95 95 Oxygen Delivery Method Room Air Room Air Positive well nourished and well developed General Appearance ED: well developed HEENT Reports moist mucous membranes Neck supple and no JVD Resp normal respiratory effort and clear to auscultation bilaterally Cardio regular rate and regular rhythm GI normal to inspection, nondistended, normoactive bowel sounds and non-tender Palpation: soft Extremity General Extremety ED: Negative for edema or tenderness General Extremity: Negative for edema Neuro oriented x3, CN's II-XII intact bilaterally and no sensory deficits noted Neuro Narrative: There was some nystagmus with right lateral gaze. There was reproducible symptoms with Francis-Hallpike maneuver. Sensorium / Orientation: alert Motor Exam: strength 5/5 throughout Psych mental status grossly normal MDM MDM MDM Narrative Medical decision making narrative: EKG was obtained. On my interpretation, there is normal sinus rhythm with a rate of 72. There is left axis deviation of -43. AR interval, QRS interval, QTC intervals were all within normal limits. There are no acute ST or T wave changes. CT scan of the brain was obtained. There is no acute intracranial abnormality. This was interpreted by the radiologist and reviewed by myself. CBC, PT with INR, PTT, comprehensive metabolic profile, and troponin were obtained were all within normal limits. Patient was given a dose of Valium here. Patient states his dizziness has nearly completely resolved. Patient feels much better. Patient was given a prescription for Valium. Patient was instructed to follow-up with his primary care physician in 5 to 7 days. Patient understood and was agreeable with the plan. All questions were answered. Lab Data Attestation: I reviewed the patient's lab results. Labs: Laboratory Results - last 24 hr 03/01/21 03/01/21 03/01/21 19:57 19:57 19:57 WBC 4.4 RBC 5.13 Hgb 15.1 Hct 46.4 MCV 90.4 MCH 29.4 MCHC 32.5 RDW Std Deviation 41.7 RDW Coeff of Kathryn 12.7 Plt Count 169 MPV 10.4 Immature Gran % (Auto) 0.200 Neut % (Auto) 54.8 Lymph % (Auto) 31.7 Talbot % (Auto) 8.9 Eos % (Auto) 3.7 Baso % (Auto) 0.7 Absolute Neuts (auto) 2.4 Absolute Lymphs (auto) 1.39 Nucleated RBC % 0 PT 14.2 INR 1.2 APTT 28.9 Sodium 141 Potassium 3.5 Chloride 106 Carbon Dioxide 29.0 Anion Gap 6 BUN 11 Creatinine 1.05 Estim Creat Clear Calc 70.49 Est GFR (MDRD) Af Amer 91 Est GFR (MDRD) Non-Af 75 BUN/Creatinine Ratio 10.5 Glucose 165 H Calcium 9.4 Total Bilirubin 0.70 AST 17 ALT 33 Alkaline Phosphatase 106 Troponin I < 0.015 Total Protein 7.2 Albumin 3.9 Globulin 3.3 Albumin/Globulin Ratio 1.2 Radiography Diagnostic Testing: Radiology Impression Brain CT 03/01/21 19:51 IMPRESSION: No acute intracranial abnormality. Old right parieto-occipital infarct. Chronic ischemic changes of the brain. Electronically Signed: Alen Melgar MD at 21:05 EDT Tel , Service support , EKG Initial EKG: Attestation: I personally reviewed and interpreted this EKG as follows: Interpretation: Sinus Rhythm (72) and No Acute Injury Pattern Comments: Left axis deviation Discharge Plan Triage Chief Complaint: Dizziness ED Provider: Timmy Tellez Dx/Rx/DC Orders Clinical Impression: Vertigo, Essential (primary) hypertension Instructions: ED Hypertension, Established, ED Vertigo, Unspecified Prescriptions: No Action gabapentin 300 mg capsule 300 mg PO TID RF: 0 losartan-hydrochlorothiazide 50-12.5 mg Tablet 1 tab PO DAILY RF: 0 Primary Care Provider: Florentino Garza Referrals: Florentino Garza MD [Primary Care Provider] - 3-5 Days Disposition Disposition: Home, self care
[2021-03-01 22:26] VITALS: BP 151/78; PULSE 59; RESP 18; O2SAT 95
== END 2021-03-01 22:27 | disposition home or self-care (01) ==
PROVIDERS: Emergency Provider Emergency Medicine; PCP Family Medicine
DX: R42 Dizziness and giddiness (principal); I10 Essential (primary) hypertension; H53.8 Other visual disturbances; R07.9 Chest pain, unspecified; E66.9 Obesity, unspecified; Z68.35 Body mass index [BMI] 35.0-35.9, adult; Z79.899 Other long term (current) drug therapy; Z86.718 Personal history of other venous thrombosis and embolism; Z86.73 Personal history of transient ischemic attack (TIA), and cerebral infarction without residual deficits
CPT/HCPCS: 70450; 80053; 84484; 85025; 85610; 85730; 93005; 99285

== ENCOUNTER → 2021-04-17 10:45 | Outpatient (CLI) | payer MEDICARE, MEDICAID, SELFPAY ==
[2021-04-02 11:05] VITALS: BMI 35.9
[2021-04-17 12:51] LABS: Anion Gap 5 (5-15); BUN 13 mg/dL (7-18); BUN/Creat Ratio 13.3 RATIO (10-20); Calcium,Total 9.1 mg/dL (8.5-10.1); Chloride 108 mmol/L (98-107); Creatinine, Serum 0.98 mg/dL (0.70-1.30); EST Glomerular Filtration Rate 81 mL/min (>60); Est Glom Filt Rate - Afr Amer 98 mL/min (>60); Glucose 87 mg/dL (74-106); Sodium Level 142 mmol/L (136-145)
== END ==
PROVIDERS: PCP Family Medicine; Referring Provider Family Medicine; Visit Provider Family Medicine
DX: I10 Essential (primary) hypertension (principal)
CPT/HCPCS: 36415; 80048

== ENCOUNTER → 2021-05-18 07:01 | Outpatient (CLI) | payer MEDICARE, MEDICAID, SELFPAY ==
[2021-04-02 11:05] VITALS: BMI 35.9
--- NOTE | 2021-05-18 07:04 | ECHOCS_ITS ---
Reason For Study: V-Tach, dizziness Procedure This was a 2D Doppler, Color Flow transthoracic echocardiogram. The study was technically difficult. Exam performed in department. Left Ventricle Normal LV size. Left ventricular systolic function is normal. The estimated ejection fraction is 55 %. Stage 2 diastolic dysfunction. No regional wall motion abnormalities noted. Right Ventricle Normal RV size. Normal systolic function. Atria Normal left atrium. Normal right atrium. Mitral Valve Normal mitral valve. Tricuspid Valve Normal tricuspid valve. Aortic Valve Normal aortic valve. Mild (1+) eccentric aortic valve insufficiency. Pulmonic Valve Normal pulmonic valve. Great Vessels Normal aortic root. The pulmonary artery is normal size. Normal inferior vena cava. Pericardium/Pleural No pericardial effusion. Medication Diluted definity 2ml given slow IV push to enhance endocardial definition. MMode/2D Measurements & Calculations LVIDd: 5.0 cm IVSd: 1.1 cm Ao root diam: 3.2 cm LVIDs: 2.9 cm LVPWd: 1.1 cm RVDd: 3.7 cm FS: 41.6 % LAV(MOD-bp): 71.1 ml LVAd ap4: 35.3 cm2 LVAd ap2: 35.3 cm2 LAV(MOD-bp) Indexed: 30.6 ml/m2 LVLd ap4: 8.5 cm LVLd ap2: 7.9 cm LAV(MOD-sp2): 79.8 ml EDV(MOD-sp4): 122.2 ml EDV(MOD-sp2): 131.5 ml LAV(MOD-sp4): 58.3 ml EDV(sp4-el): 124.7 ml EDV(sp2-el): 134.1 ml LVAs ap4: 18.7 cm2 LVAs ap2: 21.6 cm2 LVLs ap4: 6.8 cm LVLs ap2: 7.5 cm ESV(MOD-sp4): 43.2 ml ESV(MOD-sp2): 51.2 ml ESV(sp4-el): 43.5 ml ESV(sp2-el): 52.6 ml EF(MOD-sp4): 64.6 % EF(MOD-sp2): 61.1 % EF(sp4-el): 65.1 % SV(MOD-sp4): 79.0 ml SV(MOD-sp2): 80.3 ml SV(sp4-el): 81.2 ml LA A4 area: 20.2 cm2 LA dimension(2D): 3.9 cm RA A4 area: 17.2 cm2 Doppler Measurements & Calculations MV E max evgeny: 97.1 cm/sec Lat Peak E' Evgeny: 9.4 cm/sec Med Peak E' Evgeny: 5.5 cm/sec MV A max evgeny: 67.9 cm/sec E/E' lat: 10.3 E/E' med: 17.7 MV E/A: 1.4 Ao V2 max: 147.4 cm/sec AI max evgeny: 381.3 cm/sec LV V1 max: 111.8 cm/sec Ao max P.7 mmHg AI max P.2 mmHg LV V1 max P.0 mmHg AI dec slope: 153.7 cm/sec2 AI P1/2t: 726.5 msec PA V2 max: 98.0 cm/sec ECHO/Echo Complete W/ Contrast Interpretation Summary Normal LV size. Left ventricular systolic function is normal. The estimated ejection fraction is 55 %. Stage 2 diastolic dysfunction. Contrast injection was performed. Ordering Physician: Yash Davenport/Raphael Gallardo Referring Physician: Florentino Garza Performed By: Shira Salazar RDCS
--- NOTE | 2021-05-18 10:03 | STRESSREP ---
Stress Test Report Pharmacologic myocardial perfusion stress test. 65-year-old man with a history of ventricular tachyarrhythmia. Stress protocol: Resting EKG demonstrates sinus bradycardia with a rate of 58 bpm normal intervals are noted resting blood pressure is 148/82 mmHg. 0.4 mg of regadenoson was infused per usual protocol followed by Intravenous saline flush injection continuous EKG monitoring was performed. The maximum heart rate attained was 112 bpm which was 73% of maximum predicted heart rate the maximum workload was 1 metabolic equivalent. At rest nonspecific ST changes were noted and at peak infusion nonspecific ST changes were noted. Myocardial perfusion protocol. 15.0 mCi of technetium 99m sestamibi was injected at rest. 0.4 mg of regadenoson was infused per usual protocol. At peak infusion 44.3 mCi of technetium 99m sestamibi was injected stress images were obtained stress and rest images were reconstructed and compared in the short axis vertical long and horizontal long axis. Gated images were also obtained. Perfusion SPECT analysis: Review of the stress images demonstrate normal uptake of tracer noted in all areas of the myocardium. No areas of reversibility are noted to suggest ischemia. Gated SPECT analysis: The gated ejection fraction is 69%. Conclusion: Normal pharmacologic myocardial perfusion stress test. Preserved ejection fraction.
== END ==
PROVIDERS: PCP Family Medicine; Referring Provider Nurse Practitioner Family; Visit Provider Nurse Practitioner Family
DX: R94.31 Abnormal electrocardiogram [ECG] [EKG] (principal); I47.2 Ventricular tachycardia; I35.1 Nonrheumatic aortic (valve) insufficiency; I11.0 Hypertensive heart disease with heart failure; I50.30 Unspecified diastolic (congestive) heart failure; R42 Dizziness and giddiness
CPT/HCPCS: 78452; 93017; 93306; A9500; Q9957; A4216; C8929; J2785; J3490

== ENCOUNTER → 2021-06-17 09:48 | Outpatient (CLI) | payer MEDICARE, MEDICAID, SELFPAY ==
[2021-05-28 08:30] VITALS: BMI 35.9
[2021-06-17 12:43] LABS: Anion Gap 6 (5-15); BUN 15 mg/dL (7-18); BUN/Creat Ratio 18.3 RATIO (10-20); Calcium,Total 9.5 mg/dL (8.5-10.1); Chloride 107 mmol/L (98-107); Creatinine, Serum 0.82 mg/dL (0.70-1.30); EST Glomerular Filtration Rate 100 mL/min (>60); Est Glom Filt Rate - Afr Amer 121 mL/min (>60); Glucose 93 mg/dL (74-106); Potassium 4.3 mmol/L (3.5-5.1); Sodium Level 140 mmol/L (136-145)
== END ==
PROVIDERS: PCP Family Medicine; Referring Provider Family Medicine; Visit Provider Family Medicine
DX: Z86.73 Personal history of transient ischemic attack (TIA), and cerebral infarction without residual deficits (principal)
CPT/HCPCS: 36415; 80048

== ENCOUNTER 2022-01-29 09:45 | Outpatient (CLI) | payer MEDICARE, MEDICAID, SELFPAY ==
[2022-01-29 12:44] LABS: Anion Gap 5 (5-15); BUN 19 mg/dL (7-18); BUN/Creat Ratio 19.1 RATIO (10-20); Calcium,Total 9.6 mg/dL (8.5-10.1); Chloride 107 mmol/L (98-107); Cholesterol 141 mg/dL (200); EST Glomerular Filtration Rate 79 mL/min (>60); Est Glom Filt Rate - Afr Amer 96 mL/min (>60); Glucose 113 mg/dL (74-106); High Density Lipoprotein 41 mg/dL; Sodium Level 139 mmol/L (136-145); Triglycerides 59 mg/dL; Very Low Density Lipoprotein 12 mg/dL (5-40)
== END 2022-01-29 23:59 | disposition home or self-care (01) ==
LOC: MFPLAB 09:48
PROVIDERS: PCP Family Medicine; Referring Provider Family Medicine; Visit Provider Family Medicine
DX: G45.9 Transient cerebral ischemic attack, unspecified (principal)
CPT/HCPCS: 36415; 80048; 80061

== ENCOUNTER 2022-04-06 08:03 | Day surgery (SDC) | payer MEDICARE, MEDICAID, SELFPAY ==
[2022-04-06 08:30] VITALS: BP 165/65; PULSE 70; RESP 18; TEMP 36.6; O2SAT 98; BMI 31.6
[2022-04-06] MEDS: Lactated Ringers 1,000 ML 15 ML IV (08:30)
--- NOTE | 2022-04-06 09:02 | HP.PCM_ITS ---
HPI - General HPI Narrative LISA TIDWELL, is a 66 M who presents for screening colonoscopy. Patient denies any abdominal pain or blood in the stool. He has no family history of colon cancer. He has never had a colonoscopy in the past. [facility] Medical History (Updated 04/06/22 @ 09:[address] 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) Non-smoker Obesity Obstructive sleep apnea Palpitations Pedal edema Stroke/cerebrovascular accident Syncope Wears glasses Home Medications gabapentin 300 mg capsule 300 mg PO TID cap 03/27/20 [History Last Taken Unknown] furosemide 20 mg tablet 20 mg PO DAILY PRN PRN tab 05/28/21 [History Last Taken Unknown] sertraline 100 mg tablet 100 mg PO DAILY 02/15/22 [History Last Taken Unknown] Allergy/AdvReac Type Severity Reaction Status Date / Time No Known Allergies Allergy Verified 04/06/22 08:29 Surgical History (Updated 04/01/22 @ 11:32 by Virginia Marcus) History of carpal tunnel release History of tonsillectomy Presence of inferior vena cava filter Social History Smoking Status: Never smoker alcohol intake: never substance use type: does not use caffeine: Yes Type: coffee Number of servings: 2 Past Medical/Surgical History Planned Operation Planned Operative Procedure/s: Colonoscopy Previous Hospitalizations/Surgeries HX Hospitalizations: No Any Problems With Anesthesia: No You/Your Family Experience Fever (Hyperthermia) With Anes: No Cholinesterase deficiency: No Cardiovascular Hx Hypertension: Yes (no longer needs meds) Respiratory Hx Sleep Apnea: Yes CPAP: Yes BIPAP: No Hx Respiratory Tract Infection/Cold (presently): No Result (for STOP score): Positive Smoking Status: Never smoker Neurological Does patient have nerve stimulator: No Miscellaneous Recent Exposure to Contagious Disease: No Allergies No Known Allergies Allergy (Verified 04/06/22 08:29) Discharge Is Pt Admitted From a Penitentiary, or a Shelter: No Who Could Help: family After D/C, Where Do you Plan to Go: Return Home Vital Signs Vital Signs Vital Signs: 04/06/22 08:30 Temperature 97.8 F Temperature Source Temporal Pulse Rate 70 Respiratory Rate 18 Respiratory Pattern Normal Blood Pressure 165/65 H Blood Pressure Mean 98 Blood Pressure Source Monitor Blood Pressure Position Sitting Blood Pressure Location Right Arm Pulse Ox 98 Oxygen Delivery Method Room Air Weight Weight: 227 lb 1.218 oz Body Mass Index (BMI) 31.6 Physical Exam Const alert and oriented x3 Resp normal respiratory effort and normal air movement Cardio regular rate and regular rhythm GI soft to palpation, non-tender and non-distended Assessment & Plan Assessment/Plan (1) Screen for colon cancer: PLAN: I explained endoscopy in detail to the patient. I explained the risks including but not limited to stroke or heart attack with anesthesia, perforation of the GI tract, bleeding, infection. I explained that any of these could necessitate further emergency surgery. The patient understands and all questions were answered sufficiently. The patient wishes to proceed with procedure. Chente Null MD Pager: [facility] [address] [place] [address] [address] [place] [address] Office: Surgery Risks - Colonoscopy Risks Include but are not Limited To: Risks include but are not limited to: Bleeding, perforation requiring further surgery, inability to complete colonoscopy requiring barium enema.
[2022-04-06 09:35] VITALS: BP 125/64; BP 165/65; PULSE 58; RESP 15; TEMP 36.6; O2SAT 92
--- NOTE | 2022-04-06 09:39 | OP.CCLET_ITS ---
04/06/2022 Florentino Garza MD [address] [place] [address] Re : Colonoscopy procedure for Bryan Simentalmedina Dear Dr. Garza This procedure was performed on Wednesday, April 06, 2022. My impressions and recommendations are as follows: Impressions : - Diverticulosis in the sigmoid colon. There was no evidence of diverticular bleeding. - The examination was otherwise normal on direct and retroflexion views. - No specimens collected. Recommendations : - Discharge patient to home. - Resume previous diet. - Continue present medications. - Repeat colonoscopy is not recommended due to current age (66 years or older) for screening purposes. My findings are described in the full procedure note, which is enclosed. If I can be of further assistance, please feel free to contact me at Doctor phone number(s): , Work: . Sincerely, Chente Null MD 04/06/2022 9:38:28 AM This report has been signed electronically.
--- NOTE | 2022-04-06 09:39 | OP.COLON_ITS ---
Patient Name: Bryan Lee Procedure Date: 04/06/2022 9:07 AM Date of : 1955 Age: 66 Procedure: Colonoscopy Indications: Screening for colorectal malignant neoplasm Providers: Chente Null MD Medicines: Monitored Anesthesia Care Patient Profile: This is a 66 year old male. Refer to note in patient chart for documentation of history and physical. Last Colonoscopy: none. The patient's first colonoscopy is today. Complications: No immediate complications. Procedure: Pre-Anesthesia Assessment: - Prior to the procedure, a History and Physical was performed, and patient medications and allergies were reviewed. The patient's tolerance of previous anesthesia was also reviewed. The risks and benefits of the procedure and the sedation options and risks were discussed with the patient. All questions were answered, and informed consent was obtained. Prior Anticoagulants: The patient has taken no previous anticoagulant or antiplatelet agents. After reviewing the risks and benefits, the patient was deemed in satisfactory condition to undergo the procedure. After I obtained informed consent, the scope was passed under direct vision. Throughout the procedure, the patient's blood pressure, pulse, and oxygen saturations were monitored continuously. The colonoscope was introduced through the anus and advanced to the cecum, identified by appendiceal orifice and ileocecal valve. The colonoscopy was performed without difficulty. The patient tolerated the procedure well. The quality of the bowel preparation was good. Scope In: 9:15:06 AM Scope Withdrawal Time 0 hours 4 minutes 27 seconds Scope Out: 9:31:42 AM Total Procedure Duration Time 0 hours 16 minutes 36 seconds Findings: Multiple small-mouthed diverticula were found in the sigmoid colon. There was no evidence of diverticular bleeding. The exam was otherwise without abnormality on direct and retroflexion views. Impression: - Diverticulosis in the sigmoid colon. There was no evidence of diverticular bleeding. - The examination was otherwise normal on direct and retroflexion views. - No specimens collected. Recommendation: - Discharge patient to home. - Resume previous diet. - Continue present medications. - Repeat colonoscopy is not recommended due to current age (66 years or older) for screening purposes. Procedure Code(s): --- Professional --- 43736, Colonoscopy, flexible; diagnostic, including collection of specimen(s) by brushing or washing, when performed (separate procedure) Diagnosis Code(s): --- Professional --- Z12.11, Encounter for screening for malignant neoplasm of colon K57.30, Diverticulosis of large intestine without perforation or abscess without bleeding CPT copyright 2017 [employer]. All rights reserved. The codes documented in this report are preliminary and upon outpatient coder review may be revised to meet current compliance requirements. Chente Null MD 04/06/2022 9:38:28 AM This report has been signed electronically. Number of Addenda: 0 Note Initiated On: 04/06/2022 9:07 AM
[2022-04-06 09:40] VITALS: BP 125/63; BP 165/65; PULSE 57; RESP 16; O2SAT 93
[2022-04-06 09:45] VITALS: BP 119/66; BP 165/65; PULSE 55; RESP 16; O2SAT 99
[2022-04-06 09:50] VITALS: BP 130/60; BP 165/65; PULSE 53; RESP 16; TEMP 36.2; O2SAT 97
[2022-04-06 10:02] VITALS: BP 165/65
== END 2022-04-06 10:11 | disposition home or self-care (01) ==
LOC: EN 08:06 → AC 08:07
PROVIDERS: PCP Family Medicine; Referring Provider Family Medicine; Visit Provider Surgery
PROC: 0DJD8ZZ Inspection of Lower Intestinal Tract, Via Natural or Artificial Opening Endoscopic (ICD-10-PCS; CPT 45378; principal; 2022-04-06 09:10)
DX: Z12.11 Encounter for screening for malignant neoplasm of colon (principal); K57.30 Diverticulosis of large intestine without perforation or abscess without bleeding; E66.9 Obesity, unspecified; Z68.31 Body mass index [BMI] 31.0-31.9, adult; Z86.73 Personal history of transient ischemic attack (TIA), and cerebral infarction without residual deficits
CPT/HCPCS: 45378; J7120; J2405

== ENCOUNTER → 2022-05-31 | Outpatient (CLI) | payer MEDICARE, MEDICAID, SELFPAY ==
[2022-05-31 10:34] LABS: Anion Gap 2 (5-15); BUN 13 mg/dL (7-18); BUN/Creat Ratio 14.6 RATIO (10-20); Calcium,Total 9.7 mg/dL (8.5-10.1); Chloride 109 mmol/L (98-107); Creatinine, Serum 0.89 mg/dL (0.70-1.30); EST Glomerular Filtration Rate 90 mL/min (>60); Est Glom Filt Rate - Afr Amer 109 mL/min (>60); Glucose 85 mg/dL (74-106); Potassium 3.9 mmol/L (3.5-5.1); Sodium Level 141 mmol/L (136-145)
== END | disposition home or self-care (01) ==
LOC: MFPLAB 08:55
PROVIDERS: PCP Family Medicine; Visit Provider Family Medicine
DX: R03.0 Elevated blood-pressure reading, without diagnosis of hypertension (principal)
CPT/HCPCS: 36415; 80048

== ENCOUNTER 2023-02-25 12:55 | Emergency (ER) | payer MEDICARE, MEDICAID, SELFPAY ==
[2023-02-25 12:57] VITALS: BP 165/71; PULSE 65; RESP 16; TEMP 36.2; O2SAT 99; BMI 28.9
[2023-02-25 12:59] VITALS: BMI 28.9
--- NOTE | 2023-02-25 13:00 | ED.RN ---
DR. FAIR AT BEDSIDE ON TRIAGE, PT HAS NIH 0. NO STROKE TEAM.
--- NOTE | 2023-02-25 13:03 | EKG12_ITS ---
Test Reason : NEURO S/SX Blood Pressure : / mmHG Vent. Rate : 054 BPM Atrial Rate : 054 BPM P-R Int : 170 ms QRS Dur : 092 ms QT Int : 460 ms P-R-T Axes : 052 -30 039 degrees QTc Int : 436 ms Sinus bradycardia Left axis deviation Abnormal ECG Confirmed by DARLIN MARVIN, NETTIE ([id number]), legal editor TALAT CARNES ([id number]) on 02/28/2023 11:30:29 AM Referred By: Nancy Izaguirre Confirmed By:ELISSA SAEED MD
--- NOTE | 2023-02-25 13:03 | ED.RN ---
blood sugar 70
--- NOTE | 2023-02-25 13:05 | EDS_ITS ---
HPI History of Present Illness Chief Complaint: Dizziness Informant: patient Narrative Narrative: Patient is a 67-year-old male with history of hemorrhagic stroke with subsequent homonymous hemianopsia (patient states he cannot see peripherally on the left) DVT status post filter placement, anxiety and GERD presenting for an episode of lightheadedness, dizziness and chest pressure. Patient states his vision got foggy. He felt weak but was able to hold onto the grocery cart. Patient was at the store when this happened. His voice was a little slurred at the time. He came immediately here. This happened at approximately 1245. Patient notes he is actually starting to feel better. Speech is returned to normal. Mother states that he actually gets these episodes from time to time but usually they are not this bad and he does not want to be seen for him. No other complaints at this time. 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) Non-smoker Obesity Obstructive sleep apnea Palpitations Pedal edema Stroke/cerebrovascular accident Syncope Wears glasses Home Medications gabapentin 300 mg capsule 300 mg PO TID 03/27/20 [History Last Taken Unknown] furosemide 20 mg tablet 20 mg PO DAILY PRN PRN Edema 05/28/21 [History Last Taken Unknown] sertraline 100 mg tablet 100 mg PO DAILY 02/15/22 [History Last Taken Unknown] bupropion HCl 150 mg 24 hr tablet, extended release 150 mg PO DAILY 02/25/23 [History Last Taken 02/25/23] Allergy/AdvReac Type Severity Reaction Status Date / Time No Known Allergies Allergy Verified 04/06/22 08:29 Surgical History History of carpal tunnel release History of tonsillectomy Presence of inferior vena cava filter Social History Smoking Status: Never smoker alcohol intake: never substance use type: does not use caffeine: Yes Type: coffee Number of servings: 2 ROS ROS ED Constitutional Constitutional ED: Reports chills and other Details: Lightheaded ; Denies fever(s) Eyes Eyes: Reports blurry vision ENT ENT ED: Denies sore throat Cardiovascular Cardiovascular: Denies chest pain or palpitations Respiratory/Chest Respiratory/Chest: Denies cough Gastrointestinal Gastrointestinal: Denies nausea or vomiting Genitourinary Genitourinary ED: Denies dysuria or hematuria Musculoskeletal Musculoskeletal: Denies arthralgias or myalgias Integumentary Denies rash Neurologic Neurologic: Reports weakness; Denies headache(s) or paresthesias Psychiatric Psychiatric: Denies anxiety Hematologic/Lymphatic Hematologic/Lymphatic: Denies easy bleeding or easy bruising EXAM Physical Exam Const Vital Signs: 02/25/23 12:57 02/25/23 13:01 02/25/23 13:06 Temperature 97.2 F L Temperature Source Temporal Pulse Rate 65 Pulse Rate [Lying] 56 L Pulse Rate [Sitting (for 1 minute prior to obtaining)] 53 L Pulse Rate [Standing (for 1 minute prior to obtaining)] 55 L Respiratory Rate 16 Respiratory Effort Normal Non-Labored Respiratory Pattern Normal Blood Pressure 165/71 H Blood Pressure [Lying] 153/69 H Blood Pressure [Sitting (for 1 minute prior to obtaining)] 158/78 H Blood Pressure [Standing (for 1 minute prior to obtaining)] 162/69 H Blood Pressure Mean 102 Blood Pressure Mean [Lying] 97 Blood Pressure Mean [Sitting (for 1 minute prior to obtaining)] 104 Blood Pressure Mean [Standing (for 1 minute prior to obtaining)] 100 Pulse Ox 99 Oxygen Delivery Method Room Air 02/25/23 13:59 Temperature Temperature Source Pulse Rate 57 L Pulse Rate [Lying] Pulse Rate [Sitting (for 1 minute prior to obtaining)] Pulse Rate [Standing (for 1 minute prior to obtaining)] Respiratory Rate 13 Respiratory Effort Respiratory Pattern Blood Pressure 159/73 H Blood Pressure [Lying] Blood Pressure [Sitting (for 1 minute prior to obtaining)] Blood Pressure [Standing (for 1 minute prior to obtaining)] Blood Pressure Mean 101 Blood Pressure Mean [Lying] Blood Pressure Mean [Sitting (for 1 minute prior to obtaining)] Blood Pressure Mean [Standing (for 1 minute prior to obtaining)] Pulse Ox 99 Oxygen Delivery Method Room Air Positive well nourished and well developed General Appearance ED: well developed and NAD HEENT Reports moist mucous membranes Negative for trauma Eyes PERRL and EOMs intact bilaterally Eyes Narrative: Left lateral visual field deficit, chronic for patient Neck supple and no JVD Chest Wall inspection of chest normal and palpation of chest normal Resp normal respiratory effort and clear to auscultation bilaterally Cardio regular rate, regular rhythm and no murmurs GI normal to inspection, nondistended, normoactive bowel sounds and non-tender Extremity normal to inspection General Extremety ED: Negative for edema or tenderness General Extremity: Negative for edema Neuro oriented x3, CN's II-XII intact bilaterally and no sensory deficits noted Neuro Narrative: No speech deficits. NIH equals 1 for visual field deficit however this is chronic per patient Sensorium / Orientation: alert Motor Exam: strength 5/5 throughout Psych mental status grossly normal Skin no rashes or lesions noted and no wounds MDM MDM MDM Narrative Medical decision making narrative: Patient is evaluated for an episode of sudden onset of dizziness, blurred vision and some slurred speech. He was shaky and weak when it happened. He had prior episodes like this in the past the his mother later informs us. He was concerned it could be a stroke as he does have a history of a hemorrhagic stroke in 2017. His symptoms rapidly resolved in the ER and he did not have any focal neurologic deficits on my exam. He states he is feeling much better at this time. I do not think this is a stroke or TIA and I do think this was more likely a near syncopal episode. Cardiac work-up including EKG and, delta high- sensitivity troponin as well as chest x-ray and basic blood work is obtained. This is all largely normal. He has a mild leukopenia 4.3 which is nonspecific. Not have any infectious symptoms. His orthostatics are normal in the emergency room. He is given IV fluids. Patient is walking throughout the ER and states he feels much better. He has no signs of infection. He has no signs of an CHHAYA. He has no cardiac arrhythmia while in the emergency room. Delta high- sensitivity troponin is stable at 13 and then 14. At this time I do think patient be discharged home with outpatient follow-up. He has an appointment in the next few weeks to see his PCP as well as cardiology (Dr. Gonzalez). Patient is counseled that I do not think this was a stroke and that I think this was a near syncopal episode. He is given return precautions and told that if he has another episode like this he should return to the emergency room. Patient and mother verbalized agreement understand this plan Patient is bradycardic in the emergency room. Chart review shows that patient has had bradycardia in the past before. This is not new. Lab Data Attestation: I reviewed the patient's lab results. Labs: Laboratory Results - last 24 hr 02/25/23 02/25/23 02/25/23 13:02 13:12 13:12 WBC 4.3 L RBC 4.99 Hgb 15.3 Hct 46.6 MCV 93.4 MCH 30.7 MCHC 32.8 RDW Std Deviation 45.4 H RDW Coeff of Kathryn 13.2 Plt Count 166 MPV 10.7 Immature Gran % (Auto) 0.200 Neut % (Auto) 59.1 Lymph % (Auto) 29.4 [place] % (Auto) 8.3 Eos % (Auto) 2.3 Baso % (Auto) 0.7 Absolute Neuts (auto) 2.6 Absolute Lymphs (auto) 1.27 Nucleated RBC % 0 Sodium 139 Potassium 3.7 Chloride 107 Carbon Dioxide 28.0 Anion Gap 4 L BUN 15 Creatinine 0.90 Estim Creat Clear Calc 85.02 Est GFR (MDRD) Af Amer 108 Est GFR (MDRD) Non-Af 89 BUN/Creatinine Ratio 16.7 Glucose 78 Calcium 9.9 Troponin I High Sens 17 Urine Color Urine Clarity Urine pH Ur Specific [place] Urine Protein Urine Glucose (UA) Urine Ketones Urine Occult Blood Urine Nitrite Urine Bilirubin Urine Urobilinogen Ur Leukocyte Esterase Urine RBC Urine WBC Ur Squamous Epith Cells Urine Bacteria Urine Mucus POC Glucose 70 L 02/25/23 02/25/23 13:55 15:28 WBC RBC Hgb Hct MCV MCH MCHC RDW Std Deviation RDW Coeff of Kathryn Plt Count MPV Immature Gran % (Auto) Neut % (Auto) Lymph % (Auto) [place] % (Auto) Eos % (Auto) Baso % (Auto) Absolute Neuts (auto) Absolute Lymphs (auto) Nucleated RBC % Sodium Potassium Chloride Carbon Dioxide Anion Gap BUN Creatinine Estim Creat Clear Calc Est GFR (MDRD) Af Amer Est GFR (MDRD) Non-Af BUN/Creatinine Ratio Glucose Calcium Troponin I High Sens 14 Urine Color Yellow Urine Clarity Clear Urine pH 8.0 Ur Specific [place] 1.010 Urine Protein Negative Urine Glucose (UA) Normal Urine Ketones Negative Urine Occult Blood Negative Urine Nitrite Negative Urine Bilirubin Negative Urine Urobilinogen Normal Ur Leukocyte Esterase Negative Urine RBC 0 SEEN Urine WBC 0 SEEN Ur Squamous Epith Cells 0 SEEN Urine Bacteria 0 SEEN Urine Mucus 0 SEEN POC Glucose Radiography Chest X-Ray - ED: 1 View, Read by ED Physician, Read by Radiologist and No Acute Disease Diagnostic Testing: Clinical Impression(s) from Imaging Studies Chest X-Ray 02/25/23 13:15 IMPRESSION: Normal x-ray examination of the chest. Electronically Signed: Marlo Polo MD at 13:42 EDT , Rhythm Strip Rhythm Strip: Sinus Rhythm Rate: 54 Ectopy: None EKG Initial EKG: Attestation: I personally reviewed and interpreted this EKG as follows: Interpretation: Sinus Bradycardia Comments: Sinus bradycardia rate of 54 bpm Left axis Normal intervals Normal ST segment Prior EKG tracings: available for review Prior: Changed (Now bradycardic) Discharge Plan Triage Chief Complaint: Dizziness ED Provider: Nancy Izaguirre Dx/Rx/DC Orders Clinical Impression: Near syncope Instructions: ED Near-Fainting, Uncertain Cause Prescriptions: No Action gabapentin 300 mg capsule 300 mg PO TID furosemide 20 mg tablet 20 mg PO DAILY PRN PRN (Reason: Edema) sertraline 100 mg tablet 100 mg PO DAILY bupropion HCl 150 mg tablet extended release 24 hr 150 mg PO DAILY Primary Care Provider: Florentino Garza Referrals: Florentino Garza MD [Primary Care Provider] - Activity Restrictions/Additional Instructions: Please follow-up with your primary care doctor as well as your wireless sales associate as we discussed. If you have another episode like this please return to the emergency room Disposition Disposition: Home, Self Care
[2023-02-25 13:06] VITALS: BP 153/69; BP 158/78; BP 162/69; PULSE 53; PULSE 55; PULSE 56
--- NOTE | 2023-02-25 13:15 | RAD_ITS ---
STUDY: X-RAY CHEST REASON FOR EXAM: Male, 67 years old. Near syncope TECHNIQUE: Single AP portable view of the chest. COMPARISON: Comparison is made with prior study dated May 10, 2020. FINDINGS: EKG electrodes are seen. The lungs are clear and expanded. There is no demonstrated pleural abnormality. Normal size heart. Normal mediastinum and frank. Normal visualized pulmonary arteries. Normal visualized aortic arch and descending thoracic aorta. There are degenerative changes of the visualized thoracic spine. Normal visualized ribs, clavicles, and shoulders. There is no demonstrated abnormality of the visualized soft tissue structures of the upper abdomen. RAD/Chest 1 View (Portable) IMPRESSION: Normal x-ray examination of the chest. Electronically Signed: Marlo Polo MD at 13:42 EDT ,
[2023-02-25 13:20] LABS: Bedside Glucose 70 mg/dL (74-106)
[2023-02-25 13:26] LABS: Absolute Lymphocyte Count 1.27 X10^3/uL (0.83-4.51); Absolute Neutrophil Count 2.6 X10^3/uL (2.0-7.7); Basophil# 0.03 X10^3/uL; Basophil% 0.7 % (0-1); Eosinophils% 2.3 % (0-5); Hematocrit 46.6 % (40-54); Hemoglobin 15.3 g/dL (13.0-16.5); Lymphocyte # 1.27 X10^3/ul (0.83-4.51); Lymphocyte % 29.4 % (19-41); Mean Corp Hgb Conc 32.8 g/dL (32-36); Mean Corpuscular Hgb 30.7 pg (27.0-32.0); Mean Corpuscular Volume 93.4 fL (80-94); Mean Platelet Vol. 10.7 fl (6.2-12.0); Monocyte# 0.36 X10^3/uL; Monocyte% 8.3 % (0-10); NRBC Flagged by Analyzer 0 % (0-5); Neutrophil # 2.55 X10^3/uL (2.7-7.7); Neutrophil % 59.1 % (47-70); Platelet Count 166 K/mm3 (150-450); RBC Distribution Width CV 13.2 % (11.6-14.6); RBC Distribution Width SD 45.4 fl (35.1-43.9); Red Blood Count 4.99 M/mm3 (4.6-6.2); White Blood Count 4.3 K/mm3 (4.4-11.0)
[2023-02-25 13:43] LABS: Anion Gap 4 (5-15); BUN 15 mg/dL (7-18); BUN/Creat Ratio 16.7 RATIO (10-20); Calcium,Total 9.9 mg/dL (8.5-10.1); Chloride 107 mmol/L (98-107); EST Glomerular Filtration Rate 89 mL/min (>60); Est Glom Filt Rate - Afr Amer 108 mL/min (>60); Estimated Creatinine Clearance 85.02 ml/min; Glucose 78 mg/dL (74-106); Potassium 3.7 mmol/L (3.5-5.1); Sodium Level 139 mmol/L (136-145); Troponin-I HS (w/2H Reflex) 17 pg/mL (3.0-78.0)
[2023-02-25 13:59] VITALS: BP 159/73; PULSE 57; RESP 13; O2SAT 99
[2023-02-25 14:07] LABS: Bacteria 0 SEEN /hpf (None Seen); Mucous, Urine 0 SEEN /hpf (<or=2+); Red Blood Cells-Urine 0 SEEN /hpf (0-5); Squamous Epithelial Cells - UA 0 SEEN /hpf (0-5); White Blood Cells 0 SEEN /hpf (0-5)
[2023-02-25 14:08] LABS: Color, Urine Yellow (Yellow); Glucose, Dipstick Normal (Normal); Ketone-Dipstick Negative (Negative); Leukocyte Esterase-Dipstick Negative /ul (Negative); Nitrite-Dipstick Negative (Negative); Occult Blood-Urine Negative /ul (Negative); Protein-Dipstick Negative (Negative); Urine Bilirubin Dipstick Negative (Negative); Urine Clarity Clear (Clear); Urine Urobilinogen Normal (Normal)
[2023-02-25 15:21] LABS: Reflex Troponin-HS? (from REC) Y
[2023-02-25 16:10] LABS: Troponin-I HS 14 pg/mL (3.0-78.0)
[2023-02-25 16:33] VITALS: BP 150/76; PULSE 52; RESP 16; O2SAT 97
== END 2023-02-25 16:34 | disposition home or self-care (01) ==
PROVIDERS: Emergency Provider Emergency Medicine; PCP Family Medicine; Referring Provider Emergency Medicine; Visit Provider Emergency Medicine
DX: R55 Syncope and collapse (principal); G47.33 Obstructive sleep apnea (adult) (pediatric); F41.9 Anxiety disorder, unspecified; Z86.718 Personal history of other venous thrombosis and embolism; Z86.73 Personal history of transient ischemic attack (TIA), and cerebral infarction without residual deficits; Z79.899 Other long term (current) drug therapy
CPT/HCPCS: 71045; 80048; 81001; 82962; 84484; 85025; 93005; 96360; 99285; J7040; A4216

== ENCOUNTER → 2023-03-14 | Outpatient (CLI) | payer MEDICARE, MEDICAID, SELFPAY ==
[2023-03-14 13:05] LABS: Cholesterol 148 mg/dL (200); High Density Lipoprotein 52 mg/dL; Triglycerides 72 mg/dL; Very Low Density Lipoprotein 14 mg/dL (5-40)
== END | disposition home or self-care (01) ==
LOC: MFPLAB 10:26
PROVIDERS: PCP Family Medicine; Visit Provider Family Medicine
DX: Z86.73 Personal history of transient ischemic attack (TIA), and cerebral infarction without residual deficits (principal)
CPT/HCPCS: 36415; 80061

== ENCOUNTER → 2023-09-14 | Outpatient (CLI) | payer MEDICARE, MEDICAID, SELFPAY ==
[2023-09-14 12:57] LABS: Anion Gap 2 (5-15); BUN 15 mg/dL (7-18); BUN/Creat Ratio 16.6 RATIO (10-20); Calcium,Total 9.4 mg/dL (8.5-10.1); Chloride 109 mmol/L (98-107); Creatinine, Serum 0.91 mg/dL (0.70-1.30); EST Glomerular Filtration Rate 88 mL/min (>60); Est Glom Filt Rate - Afr Amer 107 mL/min (>60); Glucose 83 mg/dL (74-106); Potassium 4.4 mmol/L (3.5-5.1); Sodium Level 142 mmol/L (136-145)
== END | disposition home or self-care (01) ==
LOC: MFPLAB 10:47
PROVIDERS: PCP Family Medicine; Visit Provider Family Medicine
DX: R60.9 Edema, unspecified (principal)
CPT/HCPCS: 36415; 80048

== ENCOUNTER → 2024-03-23 | Outpatient (CLI) | payer MEDICARE, MEDICAID, SELFPAY ==
[2024-03-23 10:59] LABS: ALB/GLOB Ratio 1.3 RATIO (0.9-2.4); AST(SGOT) 18 U/L (15-37); Alanine Aminotransfer ALT/SGPT 32 U/L (16-61); Albumin, Serum 3.9 g/dL (3.2-5.0); Alkaline Phosphatase 100 U/L (45-117); Anion Gap 5 (5-15); BUN 18 mg/dL (7-18); BUN/Creat Ratio 21.2 RATIO (10-20); Calcium,Total 9.6 mg/dL (8.5-10.1); Chloride 108 mmol/L (98-107); Cholesterol 138 mg/dL (200); Creatinine, Serum 0.85 mg/dL (0.70-1.30); EST Glomerular Filtration Rate 95 mL/min (>60); Est Glom Filt Rate - Afr Amer 115 mL/min (>60); Globulin 3.1 g/dL (2.2-4.2); Glucose 92 mg/dL (74-106); High Density Lipoprotein 50 mg/dL; Potassium 4.3 mmol/L (3.5-5.1); Sodium Level 140 mmol/L (136-145); Triglycerides 41 mg/dL; Very Low Density Lipoprotein 8 mg/dL (5-40)
== END | disposition home or self-care (01) ==
LOC: MFPLAB 09:37
PROVIDERS: PCP Family Medicine; Visit Provider Family Medicine
DX: I10 Essential (primary) hypertension (principal); R03.0 Elevated blood-pressure reading, without diagnosis of hypertension
CPT/HCPCS: 36415; 80053; 80061

== ENCOUNTER → 2024-12-19 | Outpatient (CLI) | payer MEDICARE, MEDICAID, SELFPAY ==
[2024-12-19 10:43] LABS: Anion Gap 3 (5-15); BUN 18 mg/dL (7-18); BUN/Creat Ratio 17.8 RATIO (10-20); Chloride 108 mmol/L (98-107); Cholesterol 172 mg/dL (200); Creatinine, Serum 1.01 mg/dL (0.70-1.30); EST Glomerular Filtration Rate 77 mL/min (>60); Est Glom Filt Rate - Afr Amer 94 mL/min (>60); Glucose 90 mg/dL (74-106); High Density Lipoprotein 52 mg/dL; PSA,Total - Annual Screen 0.27 ng/mL (0.00-4.00); Sodium Level 141 mmol/L (136-145); Triglycerides 89 mg/dL; Very Low Density Lipoprotein 18 mg/dL (5-40)
== END | disposition home or self-care (01) ==
LOC: MFPLAB 09:10
PROVIDERS: PCP Family Medicine; Referring Provider Family Medicine; Visit Provider Family Medicine
DX: I10 Essential (primary) hypertension (principal); Z12.5 Encounter for screening for malignant neoplasm of prostate
CPT/HCPCS: 36415; 80048; 80061; 84153; G0103

== ENCOUNTER → 2025-06-19 | Outpatient (CLI) | payer MEDICARE, MEDICAID, SELFPAY ==
[2025-06-19 11:06] LABS: Anion Gap 10 (5-15); BUN 14 mg/dL (4-19); BUN/Creat Ratio 15.6 RATIO (10-20); Calcium,Total 9.7 mg/dL (7.6-11.0); Carbon Dioxide 25.6 mmol/L (21.0-32.0); Chloride 106 mmol/L (98-108); Glucose 88 mg/dL (70-99); Potassium 4.3 mmol/L (3.3-5.1)
== END | disposition home or self-care (01) ==
LOC: MFPLAB 09:00
PROVIDERS: PCP Family Medicine; Referring Provider Family Medicine; Visit Provider Family Medicine
DX: R03.0 Elevated blood-pressure reading, without diagnosis of hypertension (principal)
CPT/HCPCS: 36415; 80048